=== PATIENT | male | born 1970 | race African-American/Black ===

== ENCOUNTER 2021-11-05 14:48 | Inpatient (IN) | payer OTHER ==
[2021-11-05] MEDS ORDERED: cloNIDine HCL 0.1 MG TABLET PO ONE (16:37)
[2021-11-05] MEDS ORDERED: ACETAMINOPHEN 325 MG TABLET (FP) PO ONE (16:37)
[2021-11-05 16:46] VITALS: BMI 25.6
[2021-11-05] MEDS ORDERED: cloNIDine HCL 0.1 MG TABLET ONE (17:11)
[2021-11-05] MEDS ORDERED: MAGNESIUM CITRATE 300 ML BOTTLE PO PRN (18:21)
[2021-11-05] MEDS ORDERED: hydrOXYzine PAMOATE 25 MG CAPSULE (FP) PO PRN (18:21)
[2021-11-05] MEDS ORDERED: LOPERAMIDE HCL 2 MG CAPSULE PO PRN (18:21)
[2021-11-05] MEDS ORDERED: BISMUTH SUBSALICYLATE 524 MG/30 ML PO PRN (18:21)
[2021-11-05] MEDS ORDERED: DICYCLOMINE HCL 10 MG CAPSULE PO PRN (18:21)
[2021-11-05] MEDS ORDERED: ACETAMINOPHEN 325 MG TABLET (FP) PO PRN ×2 (18:21)
[2021-11-05] MEDS ORDERED: MAGNESIUM HYDROX 2400MG/30ML ORAL SUSPENSION 30 ML CUP PO PRN (18:21)
[2021-11-05] MEDS ORDERED: ONDANSETRON *ODT* 4 MG TABLET SL PRN (18:21)
[2021-11-05] MEDS ORDERED: P-EPHED 60MG/TRIPROLIDI 2.5MG TABLET PO PRN (18:21)
[2021-11-05] MEDS ORDERED: BENZOCAINE/MENTHOL (CHLORASEPTIC ) LOZENGE MM PRN (18:21)
[2021-11-05] MEDS ORDERED: IBUPROFEN 400 MG TABLET (FP) PO PRN (18:21)
[2021-11-05] MEDS ORDERED: MAG HYDROX/AL HYDROX/SIMETH 30 ML UNIT-DOSE CUP PO PRN (18:21)
[2021-11-05] MEDS ORDERED: diazePAM 5 MG TABLET PO PRN (18:27)
[2021-11-05] MEDS: cloNIDine HCL 0.1 MG TABLET PO SCH (19:04)
[2021-11-05] MEDS: MELATONIN 5 MG TABLETS PO SCH (22:20)
[2021-11-05] MEDS: THIAMINE HCL 100 MG TABLET (FP) PO SCH (22:20)
[2021-11-06] MEDS: PRENATAL VITAMINS W/ FOLIC ACID TABLET (FP) PO SCH (11:15)
[2021-11-06] MEDS: ASPIRIN 81 MG CHEWABLE TABLETS PO SCH (11:15)
[2021-11-06] MEDS: cloNIDine HCL 0.1 MG TABLET PO SCH (11:15)
[2021-11-06 12:42] LABS: HEMATOCRIT 34.6 % (35.4-49); HEMOGLOBIN 11.2 GM/dL (11.7-16.9); MCH 29.8 pg (25.7-33.7); MCHC 32.5 g/dl (32.0-35.9); MEAN CELL VOLUME 91.6 fl (80-96); MEAN PLT VOLUME 8.7 fl (7.5-11.1); PLATELET COUNT 300 10^3/uL (134-434); RBC 3.78 M/mm3 (4.00-5.60); RDW 13.7 % (11.9-15.9); WHITE BLOOD COUNT 4.8 K/mm3 (4.0-10.0)
[2021-11-06 12:47] LABS: ALBUMIN 3.2 g/dl (3.4-5.0); BLOOD UREA NITROGEN 23.9 mg/dL (7-18)
[2021-11-06 12:51] LABS: BILIRUBIN,TOTAL 0.3 mg/dL (0.2-1); CREATININE 1.4 mg/dL (0.55-1.3); TOT PROT 6.3 g/dl (6.4-8.2)
[2021-11-06] MEDS ORDERED: methaDONE HCL 10 MG TABLET (FOR DETOX USE ONLY) PO ONE (14:22)
[2021-11-06] MEDS: THIAMINE HCL 100 MG TABLET (FP) PO SCH (23:39)
[2021-11-06] MEDS: MELATONIN 5 MG TABLETS PO SCH (23:39)
[2021-11-07] MEDS ORDERED: methaDONE HCL 10 MG TABLET (FOR DETOX USE ONLY) ONE (09:29)
[2021-11-07] MEDS: ASPIRIN 81 MG CHEWABLE TABLETS PO SCH (09:53)
[2021-11-07] MEDS: cloNIDine HCL 0.1 MG TABLET PO SCH (09:53)
[2021-11-07] MEDS: PRENATAL VITAMINS W/ FOLIC ACID TABLET (FP) PO SCH (09:54)
[2021-11-07 10:07] LABS: SARS-CoV-2 NAA Not Detected (Not Detected)
[2021-11-07] MEDS: diazePAM 5 MG TABLET PO PRN ×2 (17:35→21:59)
[2021-11-07] MEDS: cloNIDine HCL 0.1 MG TABLET PO PRN ×2 (17:36→21:58)
[2021-11-07] MEDS: THIAMINE HCL 100 MG TABLET (FP) PO SCH (21:58)
[2021-11-07] MEDS: MELATONIN 5 MG TABLETS PO SCH (21:58)
[2021-11-07] MEDS: METHOCARBAMOL 500 MG TABLET PO PRN (21:59)
[2021-11-08] MEDS: cloNIDine HCL 0.1 MG TABLET PO SCH (09:07)
[2021-11-08] MEDS: ASPIRIN 81 MG CHEWABLE TABLETS PO SCH (09:07)
[2021-11-08] MEDS: diazePAM 5 MG TABLET PO PRN ×3 (09:17→22:49)
[2021-11-08] MEDS: PRENATAL VITAMINS W/ FOLIC ACID TABLET (FP) PO SCH (09:18)
[2021-11-08] MEDS ORDERED: methaDONE HCL 10 MG TABLET (FOR DETOX USE ONLY) PO ONE (10:00)
[2021-11-08] MEDS ORDERED: LISINOPRIL 10 MG TABLET PO ONE (11:30)
[2021-11-08] MEDS: cloNIDine HCL 0.1 MG TABLET PO PRN ×2 (18:16→22:49)
[2021-11-08] MEDS: THIAMINE HCL 100 MG TABLET (FP) PO SCH (22:49)
[2021-11-08] MEDS: MELATONIN 5 MG TABLETS PO SCH (22:49)
[2021-11-09] MEDS ORDERED: methaDONE HCL 10 MG TABLET (FOR DETOX USE ONLY) ONE (09:03)
[2021-11-09] MEDS: PRENATAL VITAMINS W/ FOLIC ACID TABLET (FP) PO SCH (09:40)
[2021-11-09] MEDS: cloNIDine HCL 0.1 MG TABLET PO SCH (09:41)
[2021-11-09] MEDS: ASPIRIN 81 MG CHEWABLE TABLETS PO SCH (09:41)
[2021-11-09] MEDS: diazePAM 5 MG TABLET PO PRN (09:52)
[2021-11-09] MEDS ORDERED: cloNIDine HCL 0.1 MG TABLET PO ONE (17:33)
[2021-11-09] MEDS: METHOCARBAMOL 500 MG TABLET PO PRN (18:13)
[2021-11-09] MEDS ORDERED: LISINOPRIL 20 MG TABLET PO ONE (21:42)
[2021-11-09] MEDS: THIAMINE HCL 100 MG TABLET (FP) PO SCH (22:00)
[2021-11-09] MEDS: MELATONIN 5 MG TABLETS PO SCH (22:00)
[2021-11-10] MEDS: METHOCARBAMOL 500 MG TABLET PO PRN (09:53)
[2021-11-10] MEDS: cloNIDine HCL 0.1 MG TABLET PO SCH (09:54)
[2021-11-10] MEDS: PRENATAL VITAMINS W/ FOLIC ACID TABLET (FP) PO SCH (09:54)
[2021-11-10] MEDS: ASPIRIN 81 MG CHEWABLE TABLETS PO SCH (09:54)
[2021-11-10] MEDS ORDERED: methaDONE HCL 10 MG TABLET (FOR DETOX USE ONLY) PO ONE (10:00)
[2021-11-10] MEDS ORDERED: cloNIDine HCL 0.1 MG TABLET PO ONE (22:00)
[2021-11-10] MEDS: MELATONIN 5 MG TABLETS PO SCH (22:37)
[2021-11-10] MEDS: THIAMINE HCL 100 MG TABLET (FP) PO SCH (22:37)
[2021-11-11 09:10] VITALS: BP 138/76; PULSE 68; TEMP 97.1
[2021-11-11] MEDS: cloNIDine HCL 0.1 MG TABLET PO SCH (10:46)
[2021-11-11] MEDS: PRENATAL VITAMINS W/ FOLIC ACID TABLET (FP) PO SCH (10:46)
[2021-11-11] MEDS: ASPIRIN 81 MG CHEWABLE TABLETS PO SCH (10:46)
[2021-11-11] MEDS ORDERED: cloNIDine HCL 0.1 MG TABLET PO ONE (22:00)
== END 2021-11-11 11:10 | disposition home or self-care (01) | DRG 773 ==
LOC: YASAS 14:48 → UNDOADMIN 18:05 → Y3N 18:05
PROVIDERS: ADMIT Allergy & Immunology; ATTEND Allergy & Immunology
PROC: HZ2ZZZZ Detoxification Services for Substance Abuse Treatment (ICD-10-PCS; principal; 2021-11-05)
DX: F11.20 Opioid dependence, uncomplicated (principal); F14.20 Cocaine dependence, uncomplicated; U07.1 COVID-19; I10 Essential (primary) hypertension; M17.11 Unilateral primary osteoarthritis, right knee; M54.50 Low back pain, unspecified; G89.29 Other chronic pain; Z87.891 Personal history of nicotine dependence; Z59.01 Sheltered homelessness
CPT/HCPCS: 36415; 80053; 85027; 86780; 87811; 93005; 93010; C9803-CS; J0735; U0003; U0005